=== PATIENT | female | born 1995 | race Two or more races ===

== ENCOUNTER 2022-06-20 05:39 | Inpatient (IN) | payer MEDICAID, OTHER ==
[~2022-06-20] VITALS: Ht 160 cm; Wt 91.6 kg
[2022-06-20] MEDS ORDERED: PENICILLIN G POT 5MIL/D5 50ML 50 ML IV ONE (07:00)
[2022-06-20] MEDS ORDERED: DERMOPLAST 60ML BOTTLE TOP PRN ×2 (07:00→23:00)
[2022-06-20] MEDS ORDERED: BUTORPHANOL TARTRATE 2 MG/1 ML VIAL IV PRN ×2 (07:00)
[2022-06-20] MEDS ORDERED: PROMETHAZINE HCL 25 MG/ML 1ML IV PRN (07:00)
[2022-06-20] MEDS ORDERED: LIDOCAINE 2%HCL (LOCAL ANESTH.) INJ 10ml MDV IJ PRN (07:00)
[2022-06-20 07:19] LABS: Basophils # (auto) 0.1 10 ^3/uL (0-0.2); Basophils % (auto) 0.6 % (0.0-2.0); Eosinophils # (auto) 0.1 10 ^3/uL (0-0.8); Eosinophils % (auto) 0.6 % (0.0-7.0); Hematocrit 38.4 % (36.0-46.0); Lymphocytes # (auto) 2.3 10 ^3/uL (0.4-5.4); Lymphocytes % (auto) 23.6 % (10.0-50.0); Mean Corpuscular Hemoglobin 31.1 pg (28.0-32.0); Mean Corpuscular Volume 91.4 fL (80.0-100.0); Monocytes % (auto) 10.2 % (0.0-12.0); Neutrophils # (auto) 6.3 10 ^3/uL (1.6-8.6); Nucleated Red Blood Cells % 0.1 %; Red Cell Distribution Width 14.5 % (11.8-14.3); White Blood Cell 9.7 10^3/uL (4.4-10.8)
[2022-06-20 07:23] LABS: Urine Bacteria FEW /hpf (None Seen); Urine Blood Negative /uL (Negative); Urine Specific Gravity 1.019 (1.001-1.035); Urine WBC 8 /hpf (0 - 5)
[2022-06-20 07:34] LABS: INR 0.9 (0.9-1.15); Partial Thromboplastin Time 29.5 sec (24.6-33.4)
[2022-06-20 07:38] LABS: Albumin 2.8 g/dL (3.4-5.0); Calcium 8.8 mg/dL (8.5-10.1); Potassium 4.3 mmol/L (3.5-5.1)
[2022-06-20 07:38] LABS: Amphetamine Screen, Urine NEGATIVE (NEGATIVE); Barbiturate Scree,Urine NEGATIVE (NEGATIVE); Benzodiazephine Screen, Urine NEGATIVE (NEGATIVE); Cannabinoid Screen, Urine NEGATIVE (NEGATIVE); Cocaine Screen, Urine NEGATIVE (NEGATIVE); Opiate Scree,Urine NEGATIVE (NEGATIVE); Phencyclidine Screen, Urine NEGATIVE (NEGATIVE)
[2022-06-20 07:40] LABS: BUN/Creatinine Ratio 26.8; Bilirubin, Total 0.4 mg/dL (0.2-1.0); Total Protein 6.7 g/dL (6.4-8.2)
[2022-06-20] MEDS ORDERED: PENICILLIN G POTASSIUM 2,500,000 UNITS in D5W 5% 50 ML IV SCH (11:00)
[2022-06-20] MEDS ORDERED: LACT. RINGERS/OXYTOCIN 20UNITS 500 ML IV ONE ×2 (12:30→13:00)
[2022-06-20] MEDS ORDERED: LACT. RINGERS/OXYTOCIN 20UNITS 1,000 ML IV SCH (12:30)
[2022-06-20] MEDS ORDERED: TERBUTALINE SULFATE 1 MG/ML 1ML VIAL SC PRN (12:30)
[2022-06-20] MEDS ORDERED: ePHEDrine SULFATE 50 MG/ML AMP IV ONE (15:15)
[2022-06-20] MEDS ORDERED: ROPIVACAINE HCL 200 ML EPI SCH (15:15)
[2022-06-20] MEDS ORDERED: NALOXONE HCL 0.4 MG/ML VIAL IV ONE (15:15)
[2022-06-20] MEDS: LACTATED RINGER'S 1,000 ML IV SCH ×3 (15:27→18:54)
[2022-06-20] MEDS: WITCH HAZEL-GLYCERIN PAD TOP PRN ×2 (16:09→22:45)
[2022-06-20] MEDS: PHISODERM TOP SOLN 240ML BTL TOP PRN ×2 (16:09→22:45)
[2022-06-20] MEDS ORDERED: miSOPROStol 100 mcg TAB PR PRN (16:15)
[2022-06-20] MEDS ORDERED: miSOPROStol 100 mcg TAB SL PRN (16:15)
[2022-06-20] MEDS ORDERED: METHYLERGONOVINE MALEATE 0.2 MG/ML AMP IM PRN (16:15)
[2022-06-20] MEDS ORDERED: CARBOPROST TROMETHAMINE 250 MCG/1ML VIAL IM PRN (16:15)
[2022-06-20] MEDS ORDERED: ePHEDrine SULFATE 50 MG/ML AMP ONE (18:27)
[2022-06-20] MEDS ORDERED: DOCUSATE SOD 100 MG CAP PO PRN (20:00)
[2022-06-20] MEDS ORDERED: ACETAMINOPHEN 325 MG TAB PO PRN (20:00)
[2022-06-20] MEDS ORDERED: ONDANSETRON ODT 4 MG TAB PO PRN (20:00)
[2022-06-20 23:04] VITALS: BP 130/72
[2022-06-21] MEDS: IBUPROFEN 800 MG TAB PO SCH ×4 (00:44→18:30)
[2022-06-21 03:03] VITALS: BP 115/59
[2022-06-21] MEDS ORDERED: DOCU100C10 PO (07:13)
[2022-06-21] MEDS ORDERED: IBUP800T26 PO (07:13)
[2022-06-21 07:17] VITALS: BP 122/78
[2022-06-21 08:06] LABS: RPR Non Reactive (Non Reactive)
[2022-06-21 11:22] VITALS: BP 122/76
[2022-06-21 15:30] VITALS: BP 125/69
[2022-06-21 19:28] VITALS: BP 128/64
[2022-06-22 01:06] LABS: Rubella Antibodies, IgG 8.39 index (Immune >0.99)
== END 2022-06-21 22:18 | disposition home or self-care (01) | DRG 560 ==
LOC: LDRP 05:39 → OBSVTOIN 08:30 → LDRP 08:55
PROVIDERS: ADMIT Obstetrics & Gynecology Obstetrics; ATTEND Obstetrics & Gynecology Obstetrics
PROC: 10E0XZZ Delivery of Products of Conception, External Approach (ICD-10-PCS; principal; 2022-06-20)
PROC: 3E0R3BZ Introduction of Anesthetic Agent into Spinal Canal, Percutaneous Approach (ICD-10-PCS; 2022-06-20)
PROC: 00HU33Z Insertion of Infusion Device into Spinal Canal, Percutaneous Approach (ICD-10-PCS; 2022-06-20)
DX: O77.0 Labor and delivery complicated by meconium in amniotic fluid (principal); Z37.0 Single live birth; O99.324 Drug use complicating childbirth; F10.10 Alcohol abuse, uncomplicated; F12.10 Cannabis abuse, uncomplicated; O69.81X0 Labor and delivery complicated by cord around neck, without compression, not applicable or unspecified; Z20.822 Contact with and (suspected) exposure to COVID-19; O99.314 Alcohol use complicating childbirth; O99.344 Other mental disorders complicating childbirth; F32.A Depression, unspecified; F41.1 Generalized anxiety disorder; F15.10 Other stimulant abuse, uncomplicated; O42.92 Full-term premature rupture of membranes, unspecified as to length of time between rupture and onset of labor; Z56.0 Unemployment, unspecified; Z3A.39 39 weeks gestation of pregnancy
CPT/HCPCS: 36415; 59025; 59409; 62282; 76805; 80053; 80307; 81001; 81002; 84112; 85025; 85610; 85730; 86592; 86703; 86762; 86850; 86900; 86901; 87340; 94760; 96361; 96365; 96366; 96374; 96375; G0378; J2540; J2590; J7060